=== PATIENT | female | born 1950 | race Asian ===

== ENCOUNTER → 2017-07-18 | Outpatient (CLI) | payer BC ==
[~2017-07-18] MED LIST: ACT15 PO; ALBU1AER9 INH; CALC600T9 PO; COEN30CA3 PO; MULT-506 PO
--- NOTE | 2017-07-21 11:07 | MAMMOGRAPHY REPORT ---
BILATERAL DIGITAL SCREENING MAMMOGRAM WITH CAD: 07/18/2017 CLINICAL HISTORY: Routine screening. Patient has no complaints. TECHNIQUE: Current study was also evaluated with a Computer Aided Detection (CAD) system. Bilateral CC and MLO views were obtained. COMPARISON: Comparison is made to exams dated: 07/17/2016 mammogram, 03/06/2015 mammogram, 01/24/2014 ma mmogram, 01/22/2013 mammogram, 01/22/2012 mammogram, and 01/26/2010 mammogram - [facility] er. BREAST COMPOSITION: The tissue of both breasts is heterogeneously dense, which may obscure small mas ses. FINDINGS: No suspicious masses, calcifications, or areas of architectural distortion are noted in ei ther breast. There has been no significant interval change compared to prior exams. IMPRESSION: ACR BI-RADS CATEGORY 1: NEGATIVE There is no mammographic evidence of malignancy. A 1 year screening mammogram is recommended. The pa tient will receive written notification of the results. Approximately 10% of breast cancers are not detected with mammography. A negative mammographic report should not delay biopsy if a clinically suggestive mass is present. Kay Serrano M.D. /:07/18/2017 09:21:46 [employer]umber Straightener: Kinza FAUSTIN(Margaux)(Shikha)(BD), [facility] letter sent: Normal 1/2 BI-RADS Code: ACR BI-RADS Category 1: Negative
== END | disposition home or self-care (01) ==
LOC: C.MAMM 08:23
PROVIDERS: ATTEND Obstetrics & Gynecology
DX: Z12.31 Encounter for screening mammogram for malignant neoplasm of breast (principal)

== ENCOUNTER 2018-02-04 00:59 | Emergency (ER) | payer BC, OTHER ==
[~2018-02-04] VITALS: Ht 154.9 cm; Wt 58.3 kg
[2018-02-04 01:02] VITALS: TEMP 36.4; Ht 154.9 cm; Wt 58.3 kg
[2018-02-04] MEDS ORDERED: ONDANSETRON INJ 2 MG/ML 2 ML VIAL IV STA (01:15)
[2018-02-04] MEDS ORDERED: MECLIZINE HCL 25 MG TAB PO STA (01:15)
[2018-02-04] MEDS ORDERED: SODIUM CHLORIDE 0.9% 500ML 500 ML IV STA (01:15)
[2018-02-04] MEDS ORDERED: ACETAMINOPHEN 325 MG TAB PO STA (01:15)
[2018-02-04] MEDS ORDERED: CHOL1000 PO (01:38)
[2018-02-04 01:46] LABS: BASO % 0.8 %; BASO ABS # 0.05 K/uL (0-0.2); EOS % 3.5 %; EOS ABS # 0.22 K/uL (0-0.5); HEMATOCRIT 38.7 % (37-47); HEMOGLOBIN 13.4 g/dL (12.0-16.0); IG# 0.01 K/uL (0.00-0.02); LYMPH ABS # 1.43 K/uL (1.2-3.4); MEAN CELL VOLUME 86.8 fL (80-100); MEAN CORPUSCULAR HGB CONC 34.6 g/dl (32-36); MEAN PLATELET VOLUME 9.2 fL (7.4-10.4); MONO % 8.1 %; NEUT % 64.4 %; PLATELET COUNT 278 K/uL (130-400); RED CELL DISTRIBUTION WIDTH SD 44.7 fL (36.4-46.3); WHITE BLOOD COUNT 6.21 K/uL (4.8-10.8)
[2018-02-04 02:22] LABS: ALBUMIN 3.6 gm/dl (3.4-5.0); ALT/SGPT 42 U/L (12-78); CALCIUM 8.7 mg/dl (8.5-10.1); CREATININE 0.75 mg/dl (0.60-1.20)
[2018-02-04 02:23] LABS: ALKALINE PHOSPHATASE 63 U/L (45-117); BLOOD UREA NITROGEN 9 mg/dl (7-18); CARBON DIOXIDE 25 mmol/L (21-32); GLUCOSE 123 mg/dl (70-99); TOTAL PROTEIN 7.2 gm/dl (6.4-8.2)
[2018-02-04 02:27] LABS: POTASSIUM 3.8 mmol/L (3.5-5.1); SODIUM 137 mmol/L (136-145)
[2018-02-04 02:30] LABS: AST/SGOT 34 U/L (15-37)
[2018-02-04] MEDS ORDERED: ANT25 PO (03:01)
[2018-02-04 03:04] VITALS: BP 121/68; PULSE 62; O2SAT 98
--- NOTE | 2018-02-04 03:12 | EMERGENCY ROOM VISIT NOTE ---
History Report prepared by Brenda: Bailee Rowland Under the Supervision of: Dr. Eloise Banegas M.D. First contact with patient: 01:01 Chief Complaint: DIZZY Stated Complaint: DIZZINESS, NAUSEA, PHOTOPHOBIA Nursing Triage Summary: Pt started to feel dizzy around 10pm. Pt states she was getting up and it got worse, tried laying down and that made it even more worse. Pt states when she sits up still it gets better and goes away. Pt felt like her heart was beating fast. Pt had hx of vertigo 20 years ago. Denies chest pain/sob. History of Present Illness The patient is a 67 year old female who presents to the Emergency Room with complaints of a persistent dizziness episode that began earlier today. She reports that she was working on her computer when she began to feel uncomfortable and strange, eventually when she stood up to lay down she became dizzy. At this time the patient also began experiencing nausea, some numbness, weakness, a headache, and racing heart beat. When she laid down, she felt like the entire room was spinning. She notes that her symptoms are somewhat relieved when she sits up. The patient reports that she has been eating and drinking well recently. She denies any recent illnesses or falls but notes a history of diabetes and had vertigo 20 years ago. The patient reports that the last time she had her sugar checked was in October, noting she takes oral medication to treat her diabetes. She denies taking any water pills. Source of History: patient Onset: earlier today Position: other (neurological) Symptom Intensity: episode Quality: other (dizziness episode) Timing: other (persistent) Modifying Factors (Relieving): other (sitting up) Associated Symptoms: + headache, + nausea, + weakness, + numbness (some) Note: Associated symptoms include: feeling like the room is spinning, and racing heart beat Review of Systems See HPI for pertinent positives & negatives. A total of 10 systems reviewed and were otherwise negative. Past Medical & Surgical Medical Problems: (1) Asthma (2) Bronchitis (3) Diabetes Family History Patient reports no known family medical history. No pertinent family history. Social History Smoking Status: Never Smoker Smokeless Tobacco Use: No Alcohol Use: none Drug Use: none Housing Status: lives alone Current/Historical Medications Scheduled Calcium Carbonate-Vitamin D (Calcium + D), 1 TAB PO DAILY Cholecalciferol (Vitamin D3), 1,000 UNIT PO DAILY Multivitamin (Multivitamin), 1 TAB PO DAILY Pioglitazone (Actos), 15 MG PO DAILY Scheduled PRN Meclizine HCl (Meclizine HCl), 1 TAB PO TID PRN for vertigo Allergies Coded Allergies: Cefaclor (Verified Allergy, Unknown, Unknown Rxn, 02/04/18) Clindamycin (Verified Allergy, Unknown, unk, 02/04/18) Crab (Verified Allergy, Unknown, facial swelling, 02/04/18) Penicillins (Verified Allergy, Unknown, Unknown Rxn, 02/04/18) Shrimp (Verified Allergy, Unknown, facial swelling, 02/04/18) Sulfa Drugs (Verified Allergy, Unknown, asthma symptoms, 02/04/18) Physical Exam Vital Signs Date Time Temp Pulse Resp B/P (MAP) Pulse Ox O2 Delivery O2 Flow Rate FiO2 02/04/18 03:04 62 16 121/68 98 02/04/18 02:35 56 16 121/68 98 Room Air 02/04/18 01:06 56 02/04/18 01:02 36.4 56 16 165/83 99 Room Air Physical Exam Vital signs reviewed. General: Well-appearing female, in no significant distress. HEENT: No scleral icterus, PERRLA, neck supple. Atraumatic. Cardiovascular: Regular rate and rhythm, no extra sounds. Pulmonary: Clear to auscultation bilaterally, normal work of breathing. Abdomen: Soft, nontender, nondistended, positive bowel sounds. Musculoskeletal: Atraumatic, no peripheral edema. Neurologic: No nystagmus. Patient awake alert and oriented x 3, full strength in all 4 extremities. Cranial nerves 2 through 12 grossly intact. Skin: Warm, dry, no rash Medical Decision & Procedures ER Provider Diagnostic Interpretation: Radiology results as stated below per my review and radiologist interpretation: CT HEAD: No acute intracranial abnormality identified. Mild cerebral volume loss. Atherosclerotic calcifications in the intracranial vasculature. Radiologist: Caitlyn Newman M.D. Laboratory Results 02/04/18 01:30 Red Blood Count 4.46, Mean Corpuscular Volume 86.8, Mean Corpuscular Hemoglobin 30.0, Mean Corpuscular Hemoglobin Concent 34.6, Mean Platelet Volume 9.2, Neutrophils (%) (Auto) 64.4, Lymphocytes (%) (Auto) 23.0, Monocytes (%) (Auto) 8.1, Eosinophils (%) (Auto) 3.5, Basophils (%) (Auto) 0.8, Neutrophils # (Auto) 4.00, Lymphocytes # (Auto) 1.43, Monocytes # (Auto) 0.50, Eosinophils # (Auto) 0.22, Basophils # (Auto) 0.05 02/04/18 01:30 Test 02/04/18 01:22 02/04/18 01:30 02/04/18 02:42 Bedside Glucose 127 mg/dl (70-90) White Blood Count 6.21 K/uL (4.8-10.8) Red Blood Count 4.46 M/uL (4.2-5.4) Hemoglobin 13.4 g/dL (12.0-16.0) Hematocrit 38.7 % (37-47) Mean Corpuscular Volume 86.8 fL (80-100) Mean Corpuscular Hemoglobin 30.0 pg (25-34) Mean Corpuscular Hemoglobin Concent 34.6 g/dl (32-36) Platelet Count 278 K/uL (130-400) Mean Platelet Volume 9.2 fL (7.4-10.4) Neutrophils (%) (Auto) 64.4 % Lymphocytes (%) (Auto) 23.0 % Monocytes (%) (Auto) 8.1 % Eosinophils (%) (Auto) 3.5 % Basophils (%) (Auto) 0.8 % Neutrophils # (Auto) 4.00 K/uL (1.4-6.5) Lymphocytes # (Auto) 1.43 K/uL (1.2-3.4) Monocytes # (Auto) 0.50 K/uL (0.11-0.59) Eosinophils # (Auto) 0.22 K/uL (0-0.5) Basophils # (Auto) 0.05 K/uL (0-0.2) RDW Standard Deviation 44.7 fL (36.4-46.3) RDW Coefficient of Variation 14.0 % (11.5-14.5) Immature Granulocyte % (Auto) 0.2 % Immature Granulocyte # (Auto) 0.01 K/uL (0.00-0.02) Anion Gap 8.0 mmol/L (3-11) Est Creatinine Clear Calc Drug Dose 58.1 ml/min Estimated GFR () 94.3 Estimated GFR (Non- 81.3 BUN/Creatinine Ratio 11.7 (10-20) Calcium Level 8.7 mg/dl (8.5-10.1) Magnesium Level 2.2 mg/dl (1.8-2.4) Total Bilirubin 0.4 mg/dl (0.2-1) Direct Bilirubin < 0.1 mg/dl (0-0.2) Aspartate Amino Transf (AST/SGOT) 34 U/L (15-37) Alanine Aminotransferase (ALT/SGPT) 42 U/L (12-78) Alkaline Phosphatase 63 U/L (45-117) Troponin I 0.036 ng/ml (0-0.045) Total Protein 7.2 gm/dl (6.4-8.2) Albumin 3.6 gm/dl (3.4-5.0) Urine Color YELLOW Urine Appearance CLEAR (CLEAR) Urine pH 8.5 (4.5-7.5) Urine Specific [place] 1.009 (1.000-1.030) Urine Protein NEG (NEG) Urine Glucose (UA) NEG (NEG) Urine Ketones NEG (NEG) Urine Occult Blood NEG (NEG) Urine Nitrite NEG (NEG) Urine Bilirubin NEG (NEG) Urine Urobilinogen NEG (NEG) Urine Leukocyte Esterase TRACE (NEG) Urine WBC (Auto) 1-5 /hpf (0-5) Urine RBC (Auto) 0-4 /hpf (0-4) Urine Hyaline Casts (Auto) 0 /lpf (0-5) Urine Epithelial Cells (Auto) 0-5 /lpf (0-5) Urine Bacteria (Auto) NEG (NEG) Medications Administered Medications (Trade) Dose Ordered Sig/Lina Route Start Time Stop Time Status Last Admin Dose Admin Meclizine HCl (Antivert Tab) 25 mg NOW STAT PO 02/04/18 01:15 02/04/18 01:18 DC 02/04/18 01:28 25 MG Ondansetron HCl (Zofran Inj) 4 mg NOW STAT IV 02/04/18 01:15 02/04/18 01:18 DC 02/04/18 01:29 4 MG Sodium Chloride 500 ml @ 999 mls/hr Q31M STAT IV 02/04/18 01:15 02/04/18 01:45 DC 02/04/18 01:28 999 MLS/HR Acetaminophen (Tylenol Tab) 650 mg NOW STAT PO 02/04/18 01:15 02/04/18 01:18 DC 02/04/18 01:28 650 MG ECG Per My Interpretation Indication: syncope Rate (beats per minute): 51 Rhythm: sinus bradycardia Findings: no acute ischemic change, no ectopy, other (Slight progressing QT at 455, RSS prime suggestive of conduction delay, normal axis, normal intervals) ED Course 0112: Past medical records reviewed. The patient was evaluated in room B3. A complete history and physical examination was performed. 0115: Ordered Tylenol Tab 650mg PO, Sodium Chloride 500ml @ 999 mls/hr IV, Zofran Inj 4mg IV, and Antivert Tab 25mg PO. 0245: Upon reevaluation, the patient appeared to have improvement of her symptoms. I discussed findings with her. I offered to continue watching her progress for a bit in the ED, but she prefers discharge. She verbalized agreement of the treatment plan. The patient was discharged home to [facility]. Medical Decision Differential diagnosis: Etiologies such as benign positional vertigo, dehydration, hypovolemia, anemia, tumor, infection, hypoglycemia, electrolyte abnormalities, cardiac sources, intracerebral event, toxicologic, neurologic, as well as others were entertained. This patient was evaluated and appeared to be in no significant distress. Physical examination reveals no focal findings. IV access was obtained and laboratory work was drawn. The patient was hydrated with normal saline solution and given meclizine 25 mg p.o. She did require IV Zofran for nausea. CT scan of the head was performed due to headache and vertigo, the study is negative for acute findings. There is no evidence of upper respiratory infection on exam. Patient was given Tylenol p.o. for headache. On reevaluation, the patient was feeling much improved. She was updated to the results of laboratory work and imaging. The patient has expressed an understanding of the plan for meclizine as needed. I have asked her to follow- up with her PCP within the next several days for reevaluation and consideration of ENT referral for her tinnitus and vertigo. Patient was discharged to the care of a taxi and will return to the emergency department if worsening of symptoms or any medical concerns. Medication Reconcilliation Current Medication List: was personally reviewed by me Blood Pressure Screening Patient's blood pressure: Normal blood pressure Blood pressure disposition: Did not require urgent referral Impression Primary Impression: Positional vertigo Scribe Attestation The scribe's documentation has been prepared under my direction and personally reviewed by me in its entirety. I confirm that the note above accurately reflects all work, treatment, procedures, and medical decision making performed by me. Departure Information Dispostion Home / Self-Care Prescriptions Meclizine HCl (Meclizine HCl) 25 Mg Tab 1 TAB PO TID Y for vertigo, #20 TAB Prov: Eloise Banegas M.D. 02/04/18 Referrals Tanmay Vences M.D. (PCP) Forms HOME CARE DOCUMENTATION FORM, IMPORTANT VISIT INFORMATION Patient Instructions My [facility] Additional Instructions Diagnosis: Benign positional vertigo Meclizine 25 mg every 8 hours as needed for vertigo. Drink plenty of clear fluids. Follow-up with your physician this week for reevaluation. Consider ENT referral for ringing in your ears and vertigo. Return to the emergency department for worsening of symptoms or any medical concerns.
--- NOTE | 2018-02-04 06:36 | DIAGNOSTIC IMAGING REPORT ---
HEAD WITHOUT CONTRAST (CT) CLINICAL HISTORY: 67 years-old Female with vertigo, PRINCE. Acute headache with vertigo TECHNIQUE: Multiple axial CT images of the head were obtained without contrast. A dose lowering technique was utilized adhering to the principles of ALARA. CT DOSE: 537.48 mGy.cm COMPARISON: None. FINDINGS: No acute intracranial hemorrhage, midline shift, intracranial mass, hydrocephalus, territorial ischemia or abnormal extra-axial collection. Mild cerebral and cerebellar atrophy. Cerebral vascular calcifications are present at the level of the skull base. The calvarium is intact. The paranasal sinuses, mastoid air cells, and middle ear cavities are clear. IMPRESSION: No acute intracranial abnormality. The above report was generated using voice recognition software. It may contain grammatical, syntax or spelling errors. Electronically signed by: William Kemp M.D. 02/04/2018 6:35 AM Dictated Date/Time: 02/04/2018 6:34 AM
== END 2018-02-04 03:12 | disposition home or self-care (01) ==
LOC: C.EDB 00:59 → EDBD 00:59 → C.EDB 03:12
DX: H81.10 Benign paroxysmal vertigo, unspecified ear (principal); E11.9 Type 2 diabetes mellitus without complications; J45.909 Unspecified asthma, uncomplicated; Z88.1 Allergy status to other antibiotic agents; Z91.013 Allergy to seafood; Z88.0 Allergy status to penicillin; Z88.2 Allergy status to sulfonamides